=== PATIENT | female | born 1985 | race Caucasian/White ===

== ENCOUNTER 2018-05-22 10:15 | Emergency (ER) | payer MEDICAID, OTHER ==
[2018-05-22 10:16] VITALS: BMI 20.1
[2018-05-22 10:21] VITALS: RESP 18; TEMP 98.1; O2SAT 100
--- NOTE | 2018-05-22 10:48 | ED PDOC ---
HPI: Female Pain Time Seen by Provider: 05/22/18 10:38 Chief Complaint (Nursing): Abdominal Pain History Per: Patient Onset/Duration Of Symptoms: Days (2) Current Symptoms Are (Timing): Still Present Severity: Moderate Quality Of Discomfort: Cramping Associated Symptoms: denies: Nausea, Vomiting, Diarrhea, Urinary Symptoms Additional Complaint(s): Vaginal bleeding assoc with lower abd cramping since yesterday. LMP Mar 2018. Home preg neg. Sexually active without contraception Past Medical History Vital Signs: Last Vital Signs Temp 98.1 F 05/22/18 10:19 Pulse 89 05/22/18 10:19 Resp 18 05/22/18 10:19 BP 141/93 H 05/22/18 10:19 Pulse Ox 100 05/22/18 10:19 - Medical History PMH: No Chronic Diseases Denies: Chronic Kidney Disease - Family History Family History: States: Unknown Family Hx - Immunization History Hx Tetanus Toxoid Vaccination: No Hx Influenza Vaccination: No Hx Pneumococcal Vaccination: No - Home Medications Home Medications: Ambulatory Orders Medication Instructions Recorded Amoxicillin/Clavulanate [Augmentin 1 tab PO BID #20 tab 11/13/17 875 MG-125 MG] Naproxen [Naprosyn] 500 mg PO BID PRN #16 tab 11/13/17 Neomycin/Polymyxin/Hydrocort 3 drp EXT TID #1 bottle 11/13/17 [Cortisporin Otic Soln] Naproxen [Naprosyn] 500 mg PO Q12H #20 tab 05/22/18 - Allergies Allergies/Adverse Reactions: Allergies Allergy/AdvReac Type Severity Reaction Status Date / Time codeine Allergy Verified 11/13/17 08:26 Review of Systems Constitutional: Negative for: Fever Gastrointestinal: Positive for: Abdominal Pain Genitourinary Female: Positive for: Vaginal Bleeding Physical Exam - Physical Exam Appears: Positive for: Non-toxic, No Acute Distress Skin: Positive for: Normal Color, Warm, DRY Gastrointestinal/Abdominal: Positive for: Bowel Sounds, Soft. Negative for: Tenderness Pelvic Exam: Positive for: External Exam Normal, Blood. Negative for: Mass, Tender Adnexa, Tender Uterus - Laboratory Results Result Diagrams: 05/22/18 11:20 05/22/18 11:20 - ECG O2 Sat by Pulse Oximetry: 100 Medical Decision Making Medical Decision Makin US Transvaginal FINDINGS: UTERUS: Measures 4.4 x 6.4 x 8.6 cm. Normal in size and appearance. No fibroid or other mass lesion seen. ENDOMETRIUM: Measures 6.5 mm in diameter. No ultrasound findings to suggest gestational sac, fluid, debris, mass or polyp or other pathologic process within the endometrium. CERVIX: No cervical abnormality identified.Incidental finding: Nabothian cysts the largest measures less than 1 cm RIGHT OVARY: Measures 2.2 x 2.9 x 3.0 cm. No solid mass. Normal flow. Simple cyst 9 x 8 mm. LEFT OVARY: Measures 2.6 x 1.0 x 3.2 cm. No solid mass. Normal flow. FREE FLUID: No significant free fluid noted. OTHER FINDINGS: None. IMPRESSION: No significant or acute findings to account for/ related to the clinical presentation. Additional benign and/or incidental findings described above. Disposition - Clinical Impression Clinical Impression: Menorrhagia, Ovarian cyst - Patient ED Disposition Is Patient to be Admitted: No Counseled Patient/Family Regarding: Studies Performed, Diagnosis, Need For Followup, Rx Given - Disposition [facility] Disposition: Routine/Home Disposition Time: 14:52 Condition: FAIR Prescriptions: Naproxen [Naprosyn] 500 mg PO Q12H #20 tab Instructions: Ovarian Cysts, Heavy Periods Forms: Language Learning Class ([place])
[2018-05-22 11:34] LABS: BASO # 0.1 K/uL (0.0-0.2); BASO % 0.8 % (0.0-2.0); EOS # 0.2 K/uL (0.0-0.7); EOS % 2.4 % (0.0-4.0); HEMOGLOBIN 13.8 g/dL (12.0-16.0); LYMPH # 2.5 K/uL (1.0-4.3); LYMPH % 34.3 % (20.0-40.0); MEAN CELL VOLUME 93.5 fl (81.0-99.0); MEAN CORPUSCULAR HEMOGLOBIN 30.8 pg (27.0-31.0); MEAN CORPUSCULAR HGB CONC 32.9 g/dL (33.0-37.0); MEAN PLATELET VOLUME 7.9 fl (7.2-11.7); MONO # 0.7 K/uL (0.0-0.8); MONO % 9.2 % (0.0-10.0); NEUT # 3.9 K/uL (1.8-7.0); NEUT % 53.3 % (50.0-75.0); NRBC % 0.1 % (0.0-0.0); RBC 4.48 Mil/uL (3.80-5.20); WHITE BLOOD COUNT 7.4 K/uL (4.8-10.8)
[2018-05-22 11:44] LABS: ALB/GLOB RATIO 1.4 (1.0-2.1); ALBUMIN 4.2 g/dL (3.5-5.0); ALT/SGPT 24 U/L (9-52); AST/SGOT 20 U/L (14-36); BLOOD UREA NITROGEN 15 mg/dl (7-17); CALCIUM 9.3 mg/dL (8.4-10.2); GFR NON-AFRICAN AMERICAN > 60
--- NOTE | 2018-05-22 13:56 | US ---
Date of service: 05/22/2018 HISTORY: Vaginal bleeding. LMP 05/18/2018. Cycles are regular. COMPARISON: 04/18/2013. Pelvic ultrasound TECHNIQUE: Transvaginal only. Real -time technique with 2D, duplex and color Doppler FINDINGS: UTERUS: Measures 4.4 x 6.4 x 8.6 cm. Normal in size and appearance. No fibroid or other mass lesion seen. ENDOMETRIUM: Measures 6.5 mm in diameter. No ultrasound findings to suggest gestational sac, fluid, debris, mass or polyp or other pathologic process within the endometrium. CERVIX: No cervical abnormality identified.Incidental finding: Nabothian cysts the largest measures less than 1 cm RIGHT OVARY: Measures 2.2 x 2.9 x 3.0 cm. No solid mass. Normal flow. Simple cyst 9 x 8 mm. LEFT OVARY: Measures 2.6 x 1.0 x 3.2 cm. No solid mass. Normal flow. FREE FLUID: No significant free fluid noted. OTHER FINDINGS: None. IMPRESSION: No significant or acute findings to account for/ related to the clinical presentation. Additional benign and/or incidental findings described above.
[2018-05-22] MEDS ORDERED: Naproxen 500 MG TAB PO ONE (15:12)
[2018-05-22] MEDS: Naproxen 500 MG TAB PO STA (15:12)
[2018-05-22 16:11] VITALS: BP 136/90; PULSE 84
== END 2018-05-22 15:19 | disposition home or self-care (01) ==
LOC: H.ER 10:15
DX: N83.201 Unspecified ovarian cyst, right side (principal); N92.0 Excessive and frequent menstruation with regular cycle